=== PATIENT | male | born 1960 | race African-American/Black ===

== ENCOUNTER 2020-03-20 17:37 | Inpatient (IN) | payer BC, MEDICAID ==
[~2020-03-20] VITALS: Ht 182.9 cm; Wt 82.6 kg
[2020-03-20 18:19] LABS: BASOPHILS % 0.9 % (0.0-2.0); EOSINOPHILS % 2.8 % (0.0-5.0); HEMATOCRIT. 39.7 % (42.0-52.0); HEMOGLOBIN. 12.7 g/dL (14.0-18.0); LYMPHOCYTES % 19.7 % (20.0-50.0); MEAN CORPUSCULAR HEMOGLOBIN 27.8 pg (28.0-32.0); MEAN CORPUSCULAR VOLUME 87.3 fL (80.0-94.0); MEAN PLATELET VOLUME 7.5 fl (7.4-10.4); MONOCYTES % 12.9 % (2.0-8.0); NEUTROPHILS % 63.7 % (40.0-76.0); PLATELET 237 x1000/uL (130-400); RED BLOOD CELL COUNT 4.55 mill/uL (4.7-6.1)
[2020-03-20 18:24] LABS: CHLORIDE 106 mEq/L (98-107); INR 1.3; PROTHROMBIN TIME 13.6 sec (9.6-11.0)
[2020-03-20 18:28] LABS: ETHANOL BLOOD < 10 mg/dL
[2020-03-20 18:31] LABS: LDL CHOLESTEROL 65 mg/dL (5-100)
[2020-03-20 19:17] LABS: CLARITY URINE CLEAR (CLEAR); COLOR URINE YELLOW (YELLOW); KETONES URINE NEGATIVE (NEGATIVE); LEUKOCYTE ESTERASE URINE NEGATIVE (NEGATIVE); NITRITE URINE NEGATIVE (NEGATIVE); OCCULT BLOOD URINE TRACE (NEGATIVE); PROTEIN URINE 1+ (NEGATIVE); SPECIFIC GRAVITY URINE 1.013 (1.005-1.030)
[2020-03-20 19:56] LABS: *AMPHETAMINES SCREEN URINE PRESUMTIVE POSITIVE (NEGATIVE); *BARBITURATES SCREEN URINE NEGATIVE (NEGATIVE); *COCAINE SCREEN URINE NEGATIVE (NEGATIVE)
[2020-03-20 19:57] LABS: *BENZODIAZEPINES SCREEN URINE NEGATIVE (NEGATIVE); CANNABINOID URINE SCREEN PRESUMTIVE POSITIVE (NEGATIVE); METHADONE URINE SCREEN NEGATIVE (NEGATIVE); OPIATES URINE SCREEN NEGATIVE (NEGATIVE); PHENCYCLIDINE URINE SCREEN NEGATIVE (NEGATIVE)
[2020-03-20] MEDS ORDERED: ASPIRIN 325MG EC TABLET PO ONE (20:30)
[2020-03-20] MEDS ORDERED: LORAZEPAM 2MG/ML CPJ IV ONE (21:45)
[2020-03-20] MEDS ORDERED: GUAIFENESIN 200MG/10ML SUGAR FREE UDC PO PRN (22:15)
[2020-03-20] MEDS ORDERED: ACETAMINOPHEN 650MG/20.3ML UDC GT PRN ×2 (22:15)
[2020-03-20] MEDS ORDERED: MAGNESIUM/ALUMINUM HYDROXIDE/SIMETHICONE 30ML UDC PO PRN (22:15)
[2020-03-20] MEDS ORDERED: ACETAMINOPHEN 325MG TABLET PO PRN (22:15)
[2020-03-20] MEDS ORDERED: DIPHENHYDRAMINE 50MG/ML VIAL IV PRN (22:15)
[2020-03-20] MEDS ORDERED: ACETAMINOPHEN 650MG SUPP PR PRN ×2 (22:15)
[2020-03-20] MEDS ORDERED: DOCUSATE SODIUM 100MG CAPSULE PO PRN (22:15)
[2020-03-20] MEDS ORDERED: NA PHOS,M-B/NA PHOS,DI-BA ENEMA 118ML PR PRN (22:15)
[2020-03-21 04:12] LABS: BASOPHILS % 2.1 % (0.0-2.0); EOSINOPHILS % 4.2 % (0.0-5.0); HEMATOCRIT. 38.9 % (42.0-52.0); HEMOGLOBIN. 12.1 g/dL (14.0-18.0); MEAN CORPUSCULAR HEMOGLOBIN 27.2 pg (28.0-32.0); MEAN CORPUSCULAR VOLUME 87.3 fL (80.0-94.0); MEAN PLATELET VOLUME 7.7 fl (7.4-10.4); NEUTROPHILS % 51.7 % (40.0-76.0); PLATELET 207 x1000/uL (130-400); RED BLOOD CELL COUNT 4.45 mill/uL (4.7-6.1); RED CELL DISTRIBUTION WIDTH 20.9 % (11.6-14.6)
[2020-03-21 04:24] LABS: CHLORIDE 107 mEq/L (98-107)
[2020-03-21 04:35] LABS: CREATINE KINASE 81 IU/L (39-308); LDL CHOLESTEROL 59 mg/dL (5-100)
[2020-03-21 04:36] LABS: HDL CHOLESTEROL 23 mg/dL (40-59)
[2020-03-21 04:39] LABS: CREATINE KINASE MB FRACTION 1.7 ng/mL (0.5-3.6)
[2020-03-21] MEDS: SODIUM CHLORIDE 0.9% INJ 3ML FLUSH IVF SCH ×3 (06:00→22:00)
[2020-03-21] MEDS: ASPIRIN 81MG EC TABLET PO SCH (08:25)
[2020-03-21] MEDS: ENOXAPARIN 40MG/0.4ML SYR SUBCUT SCH (08:25)
[2020-03-21] MEDS: FUROSEMIDE 40MG/4ML VIAL IVP SCH (10:21)
[2020-03-22] MEDS: SODIUM CHLORIDE 0.9% INJ 3ML FLUSH IVF SCH ×3 (06:00→21:45)
[2020-03-22] MEDS: ASPIRIN 81MG EC TABLET PO SCH (10:47)
[2020-03-22] MEDS: FUROSEMIDE 40MG/4ML VIAL IVP SCH (10:47)
[2020-03-22 12:00] VITALS: BP 161/109
[2020-03-22] MEDS: ENOXAPARIN 40MG/0.4ML SYR SUBCUT SCH (15:16)
[2020-03-22 15:21] LABS: EOSINOPHILS % 1.1 % (0.0-5.0); HEMATOCRIT. 42.1 % (42.0-52.0); HEMOGLOBIN. 13.7 g/dL (14.0-18.0); LYMPHOCYTES % 22.8 % (20.0-50.0); MEAN CORPUSCULAR HEMOGLOBIN 28.3 pg (28.0-32.0); MEAN CORPUSCULAR VOLUME 86.8 fL (80.0-94.0); MEAN PLATELET VOLUME 7.5 fl (7.4-10.4); MONOCYTES % 12.7 % (2.0-8.0); NEUTROPHILS % 62.4 % (40.0-76.0); PLATELET 275 x1000/uL (130-400); RED BLOOD CELL COUNT 4.85 mill/uL (4.7-6.1); RED CELL DISTRIBUTION WIDTH 21.3 % (11.6-14.6)
[2020-03-22 15:34] LABS: CHLORIDE 109 mEq/L (98-107)
[2020-03-22 16:00] VITALS: BP 134/99
[2020-03-22 20:00] VITALS: BP 148/104
[2020-03-23] VITALS: BP_SYST 161; BP_DIAS 106; BP_DIAS 113
[2020-03-23 04:00] VITALS: BP 156/100
[2020-03-23] MEDS: SODIUM CHLORIDE 0.9% INJ 3ML FLUSH IVF SCH ×3 (06:50→22:18)
[2020-03-23] MEDS: ASPIRIN 81MG EC TABLET PO SCH (09:07)
[2020-03-23] MEDS: ENOXAPARIN 40MG/0.4ML SYR SUBCUT SCH (09:08)
[2020-03-23] MEDS: FUROSEMIDE 40MG/4ML VIAL IVP SCH (09:08)
[2020-03-23] MEDS: ACETAMINOPHEN 325MG TABLET PO PRN ×2 (12:10→19:14)
[2020-03-23] MEDS: ONDANSETRON HCL 4MG/2ML INJ IV PRN ×2 (12:11→19:14)
[2020-03-23 20:00] VITALS: BP 118/74
[2020-03-23 20:39] VITALS: BP 154/93
[2020-03-24 04:00] VITALS: BP 132/106
[2020-03-24] MEDS: SODIUM CHLORIDE 0.9% INJ 3ML FLUSH IVF SCH ×3 (06:14→21:24)
[2020-03-24 08:00] VITALS: BP 132/82
[2020-03-24] MEDS: FUROSEMIDE 40MG/4ML VIAL IVP SCH (08:47)
[2020-03-24] MEDS: ASPIRIN 81MG EC TABLET PO SCH (08:47)
[2020-03-24] MEDS: ENOXAPARIN 40MG/0.4ML SYR SUBCUT SCH (08:48)
[2020-03-24 12:00] VITALS: BP 110/89
[2020-03-24 16:00] VITALS: BP 113/86
[2020-03-24 20:00] VITALS: BP 124/101
[2020-03-24] MEDS: IPRATROPIUM/ALBUTEROL 0.5-3(2.5)MG/3ML NEB HHN SCH (20:05)
[2020-03-25] VITALS: BP 124/87
[2020-03-25] MEDS: IPRATROPIUM/ALBUTEROL 0.5-3(2.5)MG/3ML NEB HHN SCH ×4 (01:43→20:10)
[2020-03-25 04:00] VITALS: BP 140/111
[2020-03-25] MEDS: SODIUM CHLORIDE 0.9% INJ 3ML FLUSH IVF SCH ×3 (06:27→21:02)
[2020-03-25] MEDS: FUROSEMIDE 40MG/4ML VIAL IVP SCH (08:41)
[2020-03-25] MEDS: ASPIRIN 81MG EC TABLET PO SCH (08:41)
[2020-03-25] MEDS: ENOXAPARIN 40MG/0.4ML SYR SUBCUT SCH (08:41)
[2020-03-25] MEDS ORDERED: ENOXAPARIN 40MG/0.4ML SYR SUBCUT SCH (12:30)
[2020-03-25] MEDS: ENOXAPARIN 80MG/0.8ML SYR SUBCUT SCH (21:01)
[2020-03-26] VITALS: BP 139/96
[2020-03-26] MEDS: IPRATROPIUM/ALBUTEROL 0.5-3(2.5)MG/3ML NEB HHN SCH ×2 (01:35→21:17)
[2020-03-26 04:00] VITALS: BP 132/86
[2020-03-26] MEDS: SODIUM CHLORIDE 0.9% INJ 3ML FLUSH IVF SCH ×3 (05:18→21:37)
[2020-03-26] MEDS: ENOXAPARIN 80MG/0.8ML SYR SUBCUT SCH ×2 (08:35→21:23)
[2020-03-26] MEDS: FUROSEMIDE 40MG/4ML VIAL IVP SCH (08:35)
[2020-03-26] MEDS ORDERED: ASPI-986 MT (17:44)
[2020-03-26] MEDS ORDERED: FURO-151 MT (17:44)
[2020-03-26] MEDS: ASPIRIN 81MG TABLET PO SCH (18:25)
[2020-03-26 20:00] VITALS: BP 133/90
[2020-03-26] MEDS: CARVEDILOL 3.125 MG TABLET PO SCH (21:23)
[2020-03-27] VITALS: BP 114/72
[2020-03-27] MEDS: IPRATROPIUM/ALBUTEROL 0.5-3(2.5)MG/3ML NEB HHN SCH ×4 (01:51→21:05)
[2020-03-27 04:00] VITALS: BP 108/62
[2020-03-27] MEDS: SODIUM CHLORIDE 0.9% INJ 3ML FLUSH IVF SCH ×3 (05:48→21:24)
[2020-03-27 08:00] VITALS: BP 141/109
[2020-03-27] MEDS: CARVEDILOL 3.125 MG TABLET PO SCH ×2 (08:20→21:23)
[2020-03-27] MEDS: FUROSEMIDE 40MG/4ML VIAL IVP SCH (08:20)
[2020-03-27] MEDS: ENOXAPARIN 80MG/0.8ML SYR SUBCUT SCH ×2 (08:20→21:24)
[2020-03-27] MEDS: ASPIRIN 81MG TABLET PO SCH (08:20)
[2020-03-27] MEDS: BENAZEPRIL 5MG TABLET PO SCH (08:20)
[2020-03-27 12:00] VITALS: BP 117/84
[2020-03-27 16:00] VITALS: BP 133/101
[2020-03-27 20:00] VITALS: BP 141/78
[2020-03-28] VITALS: BP 114/87
[2020-03-28] MEDS: IPRATROPIUM/ALBUTEROL 0.5-3(2.5)MG/3ML NEB HHN SCH ×3 (02:25→14:43)
[2020-03-28 04:00] VITALS: BP 127/85
[2020-03-28] MEDS: SODIUM CHLORIDE 0.9% INJ 3ML FLUSH IVF SCH ×3 (05:05→20:53)
[2020-03-28] MEDS: ENOXAPARIN 80MG/0.8ML SYR SUBCUT SCH ×2 (08:27→21:08)
[2020-03-28] MEDS: ASPIRIN 81MG TABLET PO SCH (08:27)
[2020-03-28] MEDS: ACETAMINOPHEN 325MG TABLET PO PRN (08:28)
[2020-03-28] MEDS: BENAZEPRIL 5MG TABLET PO SCH (08:29)
[2020-03-28] MEDS: CARVEDILOL 3.125 MG TABLET PO SCH ×2 (08:29→21:08)
[2020-03-28] MEDS: FUROSEMIDE 40MG/4ML VIAL IVP SCH (09:00)
[2020-03-28 12:00] VITALS: BP 108/83
[2020-03-28] MEDS: FUROSEMIDE 40MG TABLET PO SCH (13:17)
[2020-03-28 16:00] VITALS: BP 101/78
[2020-03-28 21:05] VITALS: BP 113/93
[2020-03-28] MEDS: LORAZEPAM 0.5MG TABLET PO PRN (21:08)
[2020-03-29] VITALS: BP 112/89
[2020-03-29 04:12] VITALS: BP 116/82
[2020-03-29] MEDS: SODIUM CHLORIDE 0.9% INJ 3ML FLUSH IVF SCH ×3 (06:00→21:29)
[2020-03-29 08:00] VITALS: BP 139/95
[2020-03-29] MEDS: IPRATROPIUM/ALBUTEROL 0.5-3(2.5)MG/3ML NEB HHN SCH ×3 (09:21→20:00)
[2020-03-29] MEDS: ASPIRIN 81MG TABLET PO SCH (09:36)
[2020-03-29] MEDS: FUROSEMIDE 40MG TABLET PO SCH (09:36)
[2020-03-29] MEDS: CARVEDILOL 3.125 MG TABLET PO SCH ×2 (09:37→21:00)
[2020-03-29] MEDS: BENAZEPRIL 5MG TABLET PO SCH (09:37)
[2020-03-29] MEDS: ENOXAPARIN 80MG/0.8ML SYR SUBCUT SCH (09:38)
[2020-03-29] MEDS: ACETAMINOPHEN 325MG TABLET PO PRN (09:41)
[2020-03-29 12:00] VITALS: BP 110/84
[2020-03-29] MEDS ORDERED: COR3 PO (12:19)
[2020-03-29] MEDS ORDERED: BENA5TAB6 PO (12:19)
[2020-03-29 14:57] LABS: BASOPHILS % 2.4 % (0.0-2.0); EOSINOPHILS % 2.9 % (0.0-5.0); HEMATOCRIT. 38.8 % (42.0-52.0); HEMOGLOBIN. 12.6 g/dL (14.0-18.0); LYMPHOCYTES % 26.1 % (20.0-50.0); MEAN CORPUSCULAR HEMOGLOBIN 28.3 pg (28.0-32.0); MEAN CORPUSCULAR VOLUME 86.9 fL (80.0-94.0); MEAN PLATELET VOLUME 7.8 fl (7.4-10.4); MONOCYTES % 14.8 % (2.0-8.0); NEUTROPHILS % 53.8 % (40.0-76.0); PLATELET 285 x1000/uL (130-400); RED BLOOD CELL COUNT 4.47 mill/uL (4.7-6.1); RED CELL DISTRIBUTION WIDTH 22.1 % (11.6-14.6)
[2020-03-29 15:13] LABS: CHLORIDE 104 mEq/L (98-107)
[2020-03-29 16:00] VITALS: BP 108/79
[2020-03-29] MEDS: APIXABAN 5 MG TABLET PO SCH (17:05)
[2020-03-29] MEDS ORDERED: APIX5TAB PO (17:07)
[2020-03-29 20:00] VITALS: BP 108/76
[2020-03-30] VITALS: BP 109/79
[2020-03-30] MEDS: IPRATROPIUM/ALBUTEROL 0.5-3(2.5)MG/3ML NEB HHN SCH ×4 (01:34→21:00)
[2020-03-30 04:00] VITALS: BP 141/111
[2020-03-30] MEDS: SODIUM CHLORIDE 0.9% INJ 3ML FLUSH IVF SCH ×3 (06:00→22:10)
[2020-03-30 08:00] VITALS: BP 134/103
[2020-03-30] MEDS: BENAZEPRIL 5MG TABLET PO SCH (08:47)
[2020-03-30] MEDS: ASPIRIN 81MG TABLET PO SCH (08:47)
[2020-03-30] MEDS: FUROSEMIDE 40MG TABLET PO SCH (08:48)
[2020-03-30] MEDS: CARVEDILOL 3.125 MG TABLET PO SCH ×2 (08:48→22:10)
[2020-03-30] MEDS: APIXABAN 5 MG TABLET PO SCH ×2 (08:48→16:48)
[2020-03-30 12:00] VITALS: BP 106/79
[2020-03-30 16:00] VITALS: BP 115/92
[2020-03-30 20:00] VITALS: BP 130/106
[2020-03-31] VITALS: BP 126/98
[2020-03-31] MEDS: IPRATROPIUM/ALBUTEROL 0.5-3(2.5)MG/3ML NEB HHN SCH ×4 (02:10→20:16)
[2020-03-31] MEDS: LORAZEPAM 0.5MG TABLET PO PRN ×2 (02:48→22:35)
[2020-03-31 04:00] VITALS: BP 121/81
[2020-03-31] MEDS: SODIUM CHLORIDE 0.9% INJ 3ML FLUSH IVF SCH ×3 (06:00→21:21)
[2020-03-31 08:00] VITALS: BP 125/98
[2020-03-31] MEDS: FUROSEMIDE 40MG TABLET PO SCH (09:05)
[2020-03-31] MEDS: BENAZEPRIL 5MG TABLET PO SCH (09:05)
[2020-03-31] MEDS: APIXABAN 5 MG TABLET PO SCH ×2 (09:06→17:53)
[2020-03-31] MEDS: CARVEDILOL 3.125 MG TABLET PO SCH ×2 (09:06→21:21)
[2020-03-31 12:00] VITALS: BP 110/90
[2020-03-31 16:00] VITALS: BP 110/86
[2020-03-31 20:00] VITALS: BP 121/94
[2020-04-01] MEDS: IPRATROPIUM/ALBUTEROL 0.5-3(2.5)MG/3ML NEB HHN SCH ×4 (02:00→21:20)
[2020-04-01 04:00] VITALS: BP 135/105
[2020-04-01] MEDS: SODIUM CHLORIDE 0.9% INJ 3ML FLUSH IVF SCH ×2 (06:32→13:48)
[2020-04-01 08:00] VITALS: BP 150/83
[2020-04-01] MEDS: FUROSEMIDE 40MG TABLET PO SCH (09:28)
[2020-04-01] MEDS: APIXABAN 5 MG TABLET PO SCH ×2 (09:28→16:46)
[2020-04-01] MEDS: BENAZEPRIL 5MG TABLET PO SCH (09:28)
[2020-04-01] MEDS: CARVEDILOL 3.125 MG TABLET PO SCH ×2 (09:28→20:40)
[2020-04-01 12:00] VITALS: BP 141/101
[2020-04-01] MEDS: ACETAMINOPHEN 325MG TABLET PO PRN (15:41)
[2020-04-01 16:00] VITALS: BP 123/91
[2020-04-01 20:00] VITALS: BP 123/91
[2020-04-02] VITALS: BP 117/92
[2020-04-02] MEDS: IPRATROPIUM/ALBUTEROL 0.5-3(2.5)MG/3ML NEB HHN SCH ×4 (02:06→21:58)
[2020-04-02 04:00] VITALS: BP 140/80
[2020-04-02 08:00] VITALS: BP 121/81
[2020-04-02] MEDS: APIXABAN 5 MG TABLET PO SCH (09:00)
[2020-04-02] MEDS: BENAZEPRIL 5MG TABLET PO SCH (09:00)
[2020-04-02] MEDS: FUROSEMIDE 40MG TABLET PO SCH (09:00)
[2020-04-02] MEDS: CARVEDILOL 3.125 MG TABLET PO SCH ×2 (09:00→21:00)
[2020-04-02 12:00] VITALS: BP 120/96
[2020-04-02 16:00] VITALS: BP 117/98
[2020-04-02] MEDS: SODIUM CHLORIDE 0.9% INJ 3ML FLUSH IVF SCH (21:41)
[2020-04-03] MEDS: SODIUM CHLORIDE 0.9% INJ 3ML FLUSH IVF SCH ×3 (05:46→21:27)
[2020-04-03 08:00] VITALS: BP 134/102
[2020-04-03] MEDS: CARVEDILOL 3.125 MG TABLET PO SCH ×2 (09:50→21:27)
[2020-04-03] MEDS: FUROSEMIDE 40MG TABLET PO SCH (09:50)
[2020-04-03] MEDS: APIXABAN 5 MG TABLET PO SCH ×3 (09:50→16:30)
[2020-04-03] MEDS: BENAZEPRIL 5MG TABLET PO SCH (09:51)
[2020-04-03 09:58] LABS: BASOPHILS % 2.5 % (0.0-2.0); EOSINOPHILS % 3.5 % (0.0-5.0); HEMATOCRIT. 38.3 % (42.0-52.0); HEMOGLOBIN. 12.5 g/dL (14.0-18.0); LYMPHOCYTES % 24.9 % (20.0-50.0); MEAN CORPUSCULAR HEMOGLOBIN 27.8 pg (28.0-32.0); MEAN CORPUSCULAR VOLUME 85.3 fL (80.0-94.0); MEAN PLATELET VOLUME 7.9 fl (7.4-10.4); MONOCYTES % 13.5 % (2.0-8.0); NEUTROPHILS % 55.6 % (40.0-76.0); PLATELET 266 x1000/uL (130-400); RED BLOOD CELL COUNT 4.49 mill/uL (4.7-6.1); RED CELL DISTRIBUTION WIDTH 21.7 % (11.6-14.6)
[2020-04-03] MEDS: IPRATROPIUM/ALBUTEROL 0.5-3(2.5)MG/3ML NEB HHN SCH ×3 (10:08→20:30)
[2020-04-03 12:00] VITALS: BP 135/89
[2020-04-03 16:07] VITALS: BP 126/84
[2020-04-03 20:00] VITALS: BP 117/97
[2020-04-04 04:00] VITALS: BP 117/89
[2020-04-04] MEDS: SODIUM CHLORIDE 0.9% INJ 3ML FLUSH IVF SCH ×2 (06:38→22:00)
[2020-04-04 08:00] VITALS: BP 117/91
[2020-04-04] MEDS: IPRATROPIUM/ALBUTEROL 0.5-3(2.5)MG/3ML NEB HHN SCH ×2 (08:26→13:20)
[2020-04-04 12:00] VITALS: BP 130/95
[2020-04-04] MEDS: APIXABAN 5 MG TABLET PO SCH ×2 (12:48→17:00)
[2020-04-04] MEDS: BENAZEPRIL 5MG TABLET PO SCH (12:49)
[2020-04-04] MEDS: CARVEDILOL 3.125 MG TABLET PO SCH ×2 (12:49→22:21)
[2020-04-04] MEDS: FUROSEMIDE 40MG TABLET PO SCH (12:49)
[2020-04-04 16:00] VITALS: BP 122/89
[2020-04-04 20:00] VITALS: BP 120/92
[2020-04-05] VITALS: BP 130/93
[2020-04-05 04:00] VITALS: BP 119/59
[2020-04-05] MEDS: SODIUM CHLORIDE 0.9% INJ 3ML FLUSH IVF SCH ×3 (06:38→21:08)
[2020-04-05] MEDS: IPRATROPIUM/ALBUTEROL 0.5-3(2.5)MG/3ML NEB HHN SCH ×2 (07:55→13:52)
[2020-04-05 08:00] VITALS: BP 136/106
[2020-04-05] MEDS: CARVEDILOL 3.125 MG TABLET PO SCH ×2 (11:00→21:06)
[2020-04-05] MEDS: FUROSEMIDE 40MG TABLET PO SCH (11:00)
[2020-04-05] MEDS: APIXABAN 5 MG TABLET PO SCH ×2 (11:00→18:12)
[2020-04-05] MEDS: BENAZEPRIL 5MG TABLET PO SCH (11:00)
[2020-04-05 12:00] VITALS: BP 133/96
[2020-04-05 16:00] VITALS: BP 121/97
[2020-04-05] MEDS: ACETAMINOPHEN 325MG TABLET PO PRN (16:40)
[2020-04-05] MEDS: HYDROCODONE/ACETAMINOPHEN 5/325MG TABLET PO PRN (18:12)
[2020-04-05 20:00] VITALS: BP 114/84
[2020-04-06] VITALS: BP 108/82
[2020-04-06] MEDS: HYDROCODONE/ACETAMINOPHEN 5/325MG TABLET PO PRN ×2 (02:40→20:54)
[2020-04-06 04:00] VITALS: BP 110/85
[2020-04-06] MEDS: SODIUM CHLORIDE 0.9% INJ 3ML FLUSH IVF SCH ×3 (05:12→21:56)
[2020-04-06 08:00] VITALS: BP 128/94
[2020-04-06] MEDS: FUROSEMIDE 40MG TABLET PO SCH (09:13)
[2020-04-06] MEDS: APIXABAN 5 MG TABLET PO SCH ×2 (09:13→17:00)
[2020-04-06] MEDS: CARVEDILOL 3.125 MG TABLET PO SCH ×2 (09:14→20:53)
[2020-04-06] MEDS: BENAZEPRIL 5MG TABLET PO SCH (09:14)
[2020-04-06] MEDS: IPRATROPIUM/ALBUTEROL 0.5-3(2.5)MG/3ML NEB HHN SCH ×3 (10:03→20:16)
[2020-04-06 12:00] VITALS: BP 123/105
[2020-04-06 16:00] VITALS: BP 120/90
[2020-04-06 20:00] VITALS: BP 142/110
[2020-04-06] MEDS ORDERED: LORAZEPAM 2MG/ML CPJ IV NR (20:15)
[2020-04-07] VITALS (7 sets, daily range): BP systolic 124–139; BP diastolic 89–98
[2020-04-07] MEDS: IPRATROPIUM/ALBUTEROL 0.5-3(2.5)MG/3ML NEB HHN SCH ×4 (01:30→19:10)
[2020-04-07] MEDS: BENAZEPRIL 5MG TABLET PO SCH (09:00)
[2020-04-07] MEDS: APIXABAN 5 MG TABLET PO SCH ×2 (09:00→19:10)
[2020-04-07] MEDS: FUROSEMIDE 40MG TABLET PO SCH (09:00)
[2020-04-07] MEDS: CARVEDILOL 3.125 MG TABLET PO SCH ×2 (09:00→21:03)
[2020-04-07] MEDS: HYDROCODONE/ACETAMINOPHEN 5/325MG TABLET PO PRN ×2 (10:08→21:04)
[2020-04-07] MEDS: SODIUM CHLORIDE 0.9% INJ 3ML FLUSH IVF SCH ×2 (14:00→22:00)
[2020-04-07] MEDS ORDERED: DIPHENHYDRAMINE 25MG CAPSULE PO PRN (20:00)
[2020-04-07] MEDS ORDERED: ONDANSETRON HCL 4MG TABLET PO PRN (20:00)
[2020-04-08] VITALS: BP 133/85
[2020-04-08] MEDS: IPRATROPIUM/ALBUTEROL 0.5-3(2.5)MG/3ML NEB HHN SCH ×4 (02:56→21:34)
[2020-04-08 04:00] VITALS: BP 144/86
[2020-04-08 08:00] VITALS: BP 129/101
[2020-04-08] MEDS: FUROSEMIDE 40MG TABLET PO SCH (08:42)
[2020-04-08] MEDS: APIXABAN 5 MG TABLET PO SCH ×2 (08:42→17:17)
[2020-04-08] MEDS: CARVEDILOL 3.125 MG TABLET PO SCH ×2 (08:42→20:54)
[2020-04-08] MEDS: BENAZEPRIL 5MG TABLET PO SCH (08:43)
[2020-04-08 12:00] VITALS: BP 119/87
[2020-04-08] MEDS: HYDROCODONE/ACETAMINOPHEN 5/325MG TABLET PO PRN (16:13)
[2020-04-08] MEDS ORDERED: LORAZEPAM 1MG TABLET PO SCH (16:30)
[2020-04-08 20:00] VITALS: BP 123/91
[2020-04-08] MEDS: SODIUM CHLORIDE 0.9% INJ 3ML FLUSH IVF SCH ×2 (21:09→21:10)
[2020-04-09] VITALS: BP 123/91
[2020-04-09] MEDS: ACETAMINOPHEN 325MG TABLET PO PRN ×2 (02:12→05:22)
[2020-04-09] MEDS: IPRATROPIUM/ALBUTEROL 0.5-3(2.5)MG/3ML NEB HHN SCH ×2 (02:16→09:19)
[2020-04-09 04:00] VITALS: BP 129/104
[2020-04-09] MEDS: SODIUM CHLORIDE 0.9% INJ 3ML FLUSH IVF SCH (07:02)
[2020-04-09 08:00] VITALS: BP 125/95
[2020-04-09] MEDS: BENAZEPRIL 5MG TABLET PO SCH (08:43)
[2020-04-09] MEDS: FUROSEMIDE 40MG TABLET PO SCH (08:44)
[2020-04-09] MEDS: APIXABAN 5 MG TABLET PO SCH (08:44)
[2020-04-09] MEDS: CARVEDILOL 3.125 MG TABLET PO SCH (08:44)
[2020-04-09 09:25] VITALS: BP 139/98
== END 2020-04-09 11:50 | disposition short-term general hospital (02) | DRG 812 ==
LOC: ER 17:37 → EDBEDREQ 21:40 → EDBEDREQSVC 21:41 → EDBEDREQTM 21:48 → EDBEDREQ 21:48 → EDBD 03-21 21:24 → 5WST 03-21 21:24 → ENRESERV 03-22 10:36
PROVIDERS: ADMIT Family Medicine; ATTEND Family Medicine
DX: T43.621A Poisoning by amphetamines, accidental (unintentional), initial encounter (principal); I63.9 Cerebral infarction, unspecified; J96.00 Acute respiratory failure, unspecified whether with hypoxia or hypercapnia; I50.43 Acute on chronic combined systolic (congestive) and diastolic (congestive) heart failure; E44.0 Moderate protein-calorie malnutrition; I08.1 Rheumatic disorders of both mitral and tricuspid valves; I48.0 Paroxysmal atrial fibrillation; I42.9 Cardiomyopathy, unspecified; J68.0 Bronchitis and pneumonitis due to chemicals, gases, fumes and vapors; D64.9 Anemia, unspecified; E78.5 Hyperlipidemia, unspecified; I11.0 Hypertensive heart disease with heart failure; R47.01 Aphasia; Z20.828 Contact with and (suspected) exposure to other viral communicable diseases; F12.10 Cannabis abuse, uncomplicated; R47.1 Dysarthria and anarthria; Y92.89 Other specified places as the place of occurrence of the external cause; Z68.24 Body mass index [BMI] 24.0-24.9, adult
CPT/HCPCS: 36415; 70496; 70498; 70551; 71045; 80048; 80053; 80061; 80305; 80320; 81003; 82962; 83036; 83721; 83735; 83880; 84132; 84484; 85025; 92523; 93005; 93306; 93970; 94640; 97110; 97116; 97162; 97166; 97530; 97535; 99291; J1650; J1940; J2060; J2405; Q0163; U0003; G0480